=== PATIENT | male | born 1960 | race Caucasian/White ===

== ENCOUNTER 2021-10-13 09:50 | Outpatient (CLI) | payer OTHER, SELFPAY ==
--- NOTE | ~2021-10-13 | US_ITS ---
EXAMINATION: US abdomen complete DATE: 10/13/2021 10:31 INDICATION: Abnormal liver function tests TECHNIQUE: Multiple grayscale and Doppler ultrasound images of the abdomen were obtained. COMPARISON: CT, 09/07/2018 FINDINGS: Bowel gas obscures visualization of the pancreas. The visualized portions of the pancreas a re unremarkable. The liver is normal with normal echogenicity and echotexture. No surface nodularity. Normal hepatopetal flow in the main portal vein. The gallbladder is normal with no abnormal wall thi ckening, pericholecystic fluid or stones. The normal common bile duct measures 5 mm. There was no son ographic Becerra sign. The visualized portions of the aorta and inferior vena cava are normal. The right kidney measures 11.7 x 5.5 x 6.4 cm. The left kidney measures 10.7 x 5.8 x 5.8 cm. The kidn eys demonstrate normal parenchymal echogenicity. There is no hydronephrosis. The spleen is normal in appearance and measures 11.5 cm. IMPRESSION: 1. No sonographic correlate for the patient's symptoms. Reviewed, dictated and finalized at location A. ICAL EDUCATION PROFESSOR
== END 2021-10-13 09:51 | disposition home or self-care (01) ==
LOC: ANHIMG 09:54
PROVIDERS: PCP Internal Medicine; Visit Provider Internal Medicine
DX: R79.89 Other specified abnormal findings of blood chemistry (principal)
CPT/HCPCS: 76700

== ENCOUNTER 2023-08-11 14:29 | Observation (INO) | payer OTHER, SELFPAY ==
[2023-08-11] VITALS (20 sets, daily range): BP systolic 130–146; BP diastolic 77–91; PULSE 93–118; RESP 14–31; TEMP 36.7–37.3; O2SAT 95–100; BMI 24.9
--- NOTE | ~2023-08-11 | CT_ITS ---
EXAMINATION: CT abdomen pelvis w con DATE: 08/11/2023 15:45 INDICATION: Generalized abdominal pain. Nausea. TECHNIQUE: Computed tomography (CT) of the abdomen and pelvis was performed with 100 mL Omnipaque 350 intravenous contrast. Automated exposure control and iterative reconstruction technique were employe d. The dose-length product was 505.50 mGy-cm. COMPARISON: CT abdomen and pelvis 09/07/2018 FINDINGS: The visualized portions of the lung bases are clear without pneumonia or pleural effusion. The heart size is normal. No pericardial effusion. A small sliding hiatal hernia. There are surgical changes of the stomach. The liver and spleen are normal. The gallbladder is distended and contains ga llstones. Gallbladder wall thickening is noted. The pancreas, adrenal glands, and left kidney are nor mal. There is a 4 mm cyst in right kidney. The prostate is mildly enlarged. There are no dilated loop s of bowel. The appendix is normal. There are no pathologically enlarged lymph nodes. There is a smal l volume of ascites. There is mild thoracic and lumbar spondylosis. There is mild chronic anterior we dging of lower thoracic vertebral bodies. IMPRESSION: 1. Acute cholecystitis. 2. Small volume of ascites. Reviewed, dictated and finalized at location E.
--- NOTE | 2023-08-11 14:42 | ED.ABDPAIN ---
HPI - Abdominal Pain General Chief Complaint: Abdominal Pain <Cassidy Berger MD - Last Filed: 08/12/23 08:00> Stated Complaint: abd apin <Cassidy Berger MD - Last Filed: 08/12/23 08:00> Time Seen by Provider: 08/11/23 14:35 <Cassidy Berger MD - Last Filed: 08/12/23 08:00> Source: patient, EMS, RN notes reviewed and old records reviewed <Cassidy Berger MD - Last Filed: 08/12/23 08:00> Mode of arrival: EMS <Cassidy Berger MD - Last Filed: 08/12/23 08:00> Limitations: no limitations <Cassidy Berger MD - Last Filed: 08/12/23 08:00> History of Present Illness HPI narrative: This is a 63 year old male who presents for evaluation of mid abdominal pain. He states he developed pain at 4 am this morning. His pain has been constant and nonradiating. His pain became worse just prior to arrival so he called EMS. He has associated nausea and dry heaves. He denies similar syptoms in the past. Denies fever or chills. <Cassidy Berger MD - Last Filed: 08/12/23 08:00> Related Data Home Medications: Home Medications Medication Instructions Recorded Confirmed cholecalciferol (vitamin D3) 50 2,000 unit PO DAILY 09/23/19 08/11/23 mcg (2,000 unit) capsule (Vitamin D3) trazodone 150 mg tablet 150 mg PO HS 09/23/19 08/11/23 gabapentin 300 mg capsule 300 mg PO BID 09/22/21 08/11/23 olanzapine 10 mg tablet 10 mg PO HS 09/22/21 08/11/23 vilazodone 40 mg tablet (Viibryd) 40 mg PO HS 09/22/21 08/11/23 <Cassidy Berger MD - Last Filed: 08/12/23 08:00> Allergies/Adverse Reactions: Allergies Allergy/AdvReac Type Severity Reaction Status Date / Time No Known Allergies Allergy Verified 08/11/23 14:37 <Cassidy Berger MD - Last Filed: 08/12/23 08:00> Review of Systems Constitutional: Constitutional: Denies weakness <Cassidy Berger MD - Last Filed: 08/12/23 08:00> Cardiovascular: Cardiovascular: Denies syncope, Denies rapid heart rate, Denies irregular heart rhythm, Denies leg edema and Denies dyspnea <Cassidy Berger MD - Last Filed: 08/12/23 08:00> Respiratory: Respiratory: Denies chest congestion, Denies hemoptysis, Denies excessive phlegm production and Denies dyspnea <Cassidy Berger MD - Last Filed: 08/12/23 08:00> Gastrointestinal: Gastrointestinal: Reports abdominal pain, Denies hematochezia, Denies diarrhea, Reports nausea and Reports vomiting <Cassidy Berger MD - Last Filed: 08/12/23 08:00> Genitourinary: Genitourinary: Denies hematuria, Denies dysuria, Denies penile discharge and Denies testicular pain <Cassidy Berger MD - Last Filed: 08/12/23 08:00> Musculoskeletal: Musculoskeletal: Denies joint swelling, Denies loss of height and Denies muscle weakness <Cassidy Berger MD - Last Filed: 08/12/23 08:00> Neurologic: Denies syncope, Denies focal weakness and Denies weakness <Cassidy Berger MD - Last Filed: 08/12/23 08:00> [facility] Past Medical History Medical History: Medical History (Updated 08/11/23 @ 17:02 by Cassidy Berger MD) Anxiety Colon cancer screening Depression GERD (gastroesophageal reflux disease) <Cassidy Berger MD - Last Filed: 08/12/23 08:00> Surgical History Surgical History: Surgical History (Updated 08/11/23 @ 19:14 by Jesus Luz DO) History of Tong-en-Y gastric bypass <Cassidy Berger MD - Last Filed: 08/12/23 08:00> Family History Family History: Family History Mother Family history of obesity Depression Family history of cardiovascular disease Father Family history of alcoholism Family history of pancreatic cancer, Onset Age: 60 Grandparent Family history of cardiovascular disease Family history of arthritis <Cassidy Berger MD - Last Filed: 08/12/23 08:00> Social History Social History: Social History (Updated 04/28/23 @ 09:11 by Smita Mccrary MA) Smoking status: Nev
[2023-08-11] MEDS: HYDROmorphone HCL INJ (*CRX) 1 MG/ML SYR IV PUSH ×2 (14:45→16:05)
[2023-08-11] MEDS: ONDANSETRON INJ 4 MG/2 ML VIAL IV PUSH (14:45)
[2023-08-11] MEDS: SODIUM CHLORIDE 0.9% IV 1,000 ML 999 ML IV CONT ×2 (14:45→15:51)
[2023-08-11 14:59] LABS: Basophils Percent Auto 0.2 % (0.2-1.2); Eosinophils Percent Auto 0.1 % (0-4.4); Hematocrit 41.3 % (42.0-52.0); Hemoglobin 13.8 g/dL (14.0-18.0); Immature Granulocyte Absolute 0.07 K/mm3 (0.00-0.031); Immature Granulocyte Percent A 0.6 % (0-0.5); Lymphocytes Absolute Auto 1.29 K/mm3 (0.9-3.2); Lymphocytes Percent Auto 10.3 % (18.3-44.2); Mean Corpuscular HGB Conc 33.4 g/dl (32-36); Mean Corpuscular Hemoglobin 31.4 pg (26-34); Mean Corpuscular Volume 94.1 fl (80-100); Mean Platelet Volume 9.8 fl (7.4-10.4); Monocytes Absolute Auto 0.8 K/mm3 (0.1-0.6); Monocytes Percent Auto 6.6 % (2.6-8.5); Neutrophils Absolute Auto 10.3 K/mm3 (1.3-6.7); Neutrophils Percent Auto 82.2 % (45.5-73.1); Platelet Count Result 233 k/mm3 (150-375); Red Blood Count 4.39 M/mm3 (4.6-6.20); White Blood Count 12.5 K/mm3 (4.5-10.0)
[2023-08-11 15:25] LABS: Lactic Acid Reflex 3.7 mmol/L (0.7-2.0)
[2023-08-11 15:36] LABS: Alanine Aminotransferase 57 U/L (6-50); Albumin Level 4.6 g/dL (3.5-5.1); Alkaline Phosphatase 94 U/L (38-126); Anion Gap 14 mmol/L (8-16); Aspartate Amino Transferase 55 U/L (17-59); Bilirubin,Total 0.8 mg/dL (0.2-1.3); Blood Urea Nitrogen 6 mg/dL (9-20); Calcium 9.7 mg/dL (8.4-10.2); Carbon Dioxide 21 mmol/L (22-30); Chloride 100 mmol/L (98-107); Estimated CRCL calculation 93 ml/min; Estimated Glomerular Filt Rate > 60; Glucose 197 mg/dL (65-110); Lipase 51 U/L (23-300); Potassium 3.4 mmol/L (3.4-5.0); Sodium 135 mmol/L (137-145)
[2023-08-11 17:13] LABS: Appearance Urine Clear (Clear); Bilirubin Urine Negative (Negative); Blood Urine Negative (Negative); Color Urine Yellow (Yellow); Glucose Urine UA 2+ mg/dL (Negative); Ketones Urine Negative (Negative); Leukocyte Esterase Ur Negative LEU/UL (Negative); Nitrate Urine Negative (Negative); Protein Urine Negative (Negative); Urobilinogen Urine 0.2 mg/dL (<2.0); pH Urine 6.5 (5.0-9.0)
[2023-08-11 17:20] LABS: Add Urine Microscopic? NO; Specific Grav Ur 1.042 (1.001-1.035)
[2023-08-11] MEDS: PIPERACILLN/TAZ 3.375GM/NS50ML 3.375 GM/50 ML BAG IVPB (17:28)
[2023-08-11 18:12] LABS: Reflex Lactic Acid Yes or No Add Lactic
[2023-08-11] MEDS: HYDROmorphone HCL INJ (*CRX) 1 MG/ML SYR 0.5 MG IV PUSH ×2 (18:24→20:27)
--- NOTE | 2023-08-11 18:45 | ADMGEN ---
This patient, Rafael Oliveira, was admitted to 3 [facility] Surg Room 311-01 @ 3535. Patient/family oriented to hospital policies and general routines including ID bracelet, bed and alarms, visiting hours, pain management, procedures, bathroom and other care routines, personal items, smoking policy, room service/diet, and visiting hours. Information on how to activate the Rapid Response Team has been discussed. Patient/Family are encouraged to report perceived risks to care and to ask questions if they do not understand what they are told or what they should do.
--- NOTE | 2023-08-11 19:11 | PM.IMHP ---
H&P: HPI History of Present Illness Date/Time: 08/11/23 19:11 Chief Complaint: Generalized abdominal pain Narrative: This is a 63-year-old man who presented to the emergency department today with acute onset of generalized abdominal pain that started around 4:00 a.m. this morning. He does not recall anything specific that he ate for dinner last night but said he probably did eat a lot of junk food. He has never had symptoms like this before. He states that he did feel a popping sensation when the pain suddenly worsened. He denies any fevers or chills. He denies any change in bowel habits leading up to this. Review of Systems Review of Systems: All systems reviewed & are unremarkable except as noted in HPI and below Constitutional: Constitutional: Reports as per HPI Eyes: Eyes: Denies change in vision ENT: Denies hearing loss, Denies neck pain and Denies sore throat Cardiovascular: Cardiovascular: Denies chest pain and Denies dyspnea Respiratory: Respiratory: Denies cough, Denies dyspnea and Denies wheezing Gastrointestinal: Gastrointestinal: Reports as per HPI Genitourinary: Genitourinary: Denies hematuria and Denies dysuria Musculoskeletal: Musculoskeletal: Denies arthralgias, Denies joint swelling and Denies neck pain Allergic/Immunologic: Allergic/Immunologic: Denies wheezing PMFSH Past Medical History Medical History (Updated 08/11/23 @ 17:02 by Cassidy Breger MD) Anxiety Colon cancer screening Depression GERD (gastroesophageal reflux disease) Surgical History Surgical History (Updated 08/11/23 @ 19:14 by Jesus Luz DO) History of Tong-en-Y gastric bypass Family History Family History Mother Family history of obesity Depression Family history of cardiovascular disease Father Family history of alcoholism Family history of pancreatic cancer, Onset Age: 60 Grandparent Family history of cardiovascular disease Family history of arthritis Social History Social History (Updated 04/28/23 @ 09:11 by Smita Mccrary MA) Smoking status: Never smoker Second hand tobacco smoke exposure: No Alcohol intake: former Substance use: never Lack of Transportation: No Lack of Food: Never True Current Housing: I Have Housing Concerned About Future Housing: No Difficulty Paying Gas/Electric Bills: No Difficulty Paying for Meds: No Currently Unemployed: No Education: Master's Degree or Higher Difficulty w/ Childcare or Family Care: No Gender identity (if verbalized by the patient): Male Meds Home Medications and Allergies Home Medications Medication Instructions Recorded Confirmed Type cholecalciferol (vitamin D3) 50 2,000 unit PO DAILY 09/23/19 04/28/23 History mcg (2,000 unit) capsule (Vitamin D3) hydroxyzine pamoate 50 mg BID 09/23/19 04/28/23 History trazodone 150 mg tablet 150 mg PO HS 09/23/19 04/28/23 History gabapentin 300 mg capsule 300 mg PO BID 09/22/21 04/28/23 History olanzapine 10 mg tablet 10 mg PO DAILY 09/22/21 04/28/23 History vilazodone 40 mg tablet (Viibryd) 40 mg PO DAILY 09/22/21 04/28/23 History ferrous sulfate 325 mg (65 mg 325 mg PO DAILY #90 tabs 04/28/23 04/28/23 Rx iron) tablet Allergies Allergy/AdvReac Type Severity Reaction Status Date / Time No Known Allergies Allergy Verified 08/11/23 14:37 Vital Signs Vital Signs - 24 hr 08/11/23 14:31 08/11/23 14:45 08/11/23 14:46 Temperature 36.8 C Pulse Rate 118 H 108 H 108 H Respiratory Rate 23 H 28 H 31 H Blood Pressure 141/90 H 140/86 Pulse Oximetry 100 100 100 Oxygen Delivery Room Air 08/11/23 15:33 08/11/23 17:31 08/11/23 16:06 Temperature Pulse Rate 109 H 108 H Respiratory Rate 24 H 19 Blood Pressure 146/91 H Pulse Oximetry 98 Oxygen Delivery 08/11/23 16:52 08/11/23 17:00 08/11/23 17:15 Temperature Pulse Rate 101 H 101 H 115 H Respiratory Ra
[2023-08-11] MEDS: LACTATED RINGERS 1,000 ML 150 ML IV CONT (20:26)
[2023-08-12] VITALS (14 sets, daily range): BP systolic 116–143; BP diastolic 70–85; PULSE 68–112; RESP 12–24; TEMP 36.6–37.2; O2SAT 95–99
[2023-08-12] MEDS: PIPERACILLN/TAZ 3.375GM/NS50ML 3.375 GM/50 ML BAG IVPB ×4 (00:11→16:47)
[2023-08-12] MEDS: HYDROmorphone HCL INJ (*CRX) 1 MG/ML SYR 0.5 MG IV PUSH (02:48)
[2023-08-12] MEDS: LACTATED RINGERS 1,000 ML 150 ML IV CONT (02:50)
[2023-08-12 07:27] LABS: Hematocrit 38.4 % (42.0-52.0); Hemoglobin 12.8 g/dL (14.0-18.0); Mean Corpuscular HGB Conc 33.3 g/dl (32-36); Mean Corpuscular Hemoglobin 31.6 pg (26-34); Mean Corpuscular Volume 94.8 fl (80-100); Mean Platelet Volume 9.9 fl (7.4-10.4); Platelet Count Result 182 k/mm3 (150-375); Red Blood Count 4.05 M/mm3 (4.6-6.20); Red Cell Distribution Width 14.2 % (11.5-14.5); White Blood Count 10.9 K/mm3 (4.5-10.0)
[2023-08-12 07:39] LABS: Alanine Aminotransferase 68 U/L (6-50); Albumin Level 3.7 g/dL (3.5-5.1); Alkaline Phosphatase 76 U/L (38-126); Anion Gap 5 mmol/L (8-16); Aspartate Amino Transferase 95 U/L (17-59); Bilirubin,Total 1.1 mg/dL (0.2-1.3); Blood Urea Nitrogen 8 mg/dL (9-20); Calcium 8.7 mg/dL (8.4-10.2); Carbon Dioxide 28 mmol/L (22-30); Chloride 100 mmol/L (98-107); Estimated CRCL calculation 93 ml/min; Estimated Glomerular Filt Rate > 60; Glucose 117 mg/dL (65-110); Lipase 27 U/L (23-300); Potassium 4.2 mmol/L (3.4-5.0); Sodium 133 mmol/L (137-145)
--- NOTE | 2023-08-12 07:56 | WPDANESEPPF ---
Anes - Initial Pre Proc Eval Procedure: Operation Date: 08/12/23 08:00 Proposed Procedures p Laparoscopic Cholecystectomy - Jesus Luz DO Date/Time: 08/12/23 07:56 Surgeon: Annette Dumont DO Pre Op Diagnosis: Acute Cholecystitis Patient Data Age: 63 Gender: M Height: 1.75 m Weight: 76.6 kg Last Vital Signs Temp 37.2 C 08/12/23 05:34 Pulse 83 08/12/23 05:34 Resp 12 08/12/23 05:34 BP 116/78 08/12/23 05:34 Pulse Ox 98 08/12/23 05:34 O2 Del Method Room Air 08/12/23 07:37 Allergies Allergy/AdvReac Type Severity Reaction Status Date / Time No Known Allergies Allergy Verified 08/11/23 14:37 Home Medications Medication Instructions Recorded Confirmed Type cholecalciferol (vitamin D3) 50 2,000 unit PO DAILY 09/23/19 08/11/23 History mcg (2,000 unit) capsule (Vitamin D3) trazodone 150 mg tablet 150 mg PO HS 09/23/19 08/11/23 History gabapentin 300 mg capsule 300 mg PO BID 09/22/21 08/11/23 History olanzapine 10 mg tablet 10 mg PO HS 09/22/21 08/11/23 History vilazodone 40 mg tablet (Viibryd) 40 mg PO HS 09/22/21 08/11/23 History ferrous sulfate 325 mg (65 mg 325 mg PO DAILY #90 tabs 04/28/23 08/11/23 Rx iron) tablet Laboratory Tests 08/11/23 08/11/23 08/11/23 14:49 15:10 16:46 WBC 12.5 H K/mm3 (4.5-10.0) RBC 4.39 L M/mm3 (4.6-6.20) Hgb 13.8 L g/dL (14.0-18.0) Hct 41.3 L % (42.0-52.0) MCV 94.1 fl (80-100) MCH 31.4 pg (26-34) MCHC 33.4 g/dl (32-36) RDW 14.0 % (11.5-14.5) Plt Count 233 k/mm3 (150-375) MPV 9.8 fl (7.4-10.4) Immature Gran % (Auto) 0.6 H % (0-0.5) Neut % (Auto) 82.2 H % (45.5-73.1) Lymph % (Auto) 10.3 L % (18.3-44.2) [place] % (Auto) 6.6 % (2.6-8.5) Eos % (Auto) 0.1 % (0-4.4) Baso % (Auto) 0.2 % (0.2-1.2) Lymph # (Auto) 1.29 K/mm3 (0.9-3.2) [place] # (Auto) 0.8 H K/mm3 (0.1-0.6) Eos # (Auto) 0.0 K/mm3 (0-0.3) Baso # (Auto) 0.0 K/mm3 (0.0-0.1) Abs Immat Gran (auto) 0.07 H K/mm3 (0.00-0.031) Absolute Neuts (auto) 10.3 H K/mm3 (1.3-6.7) Absolute Nucleated RBC 0.0 K/mm3 (0.0-0.012) Nucleated RBC % 0.0 % (0.0-0.2) Sodium 135 L mmol/L (137-145) Potassium 3.4 mmol/L (3.4-5.0) Chloride 100 mmol/L (98-107) Carbon Dioxide 21 L mmol/L (22-30) Anion Gap 14 mmol/L (8-16) BUN 6 L mg/dL (9-20) Creatinine 0.70 mg/dL (0.7-1.3) Estim Creat Clear Calc 93 ml/min Estimated GFR > 60 (59 - ) Glucose 197 H mg/dL (65-110) Lactic Acid 3.7 H mmol/L (0.7-2.0) Calcium 9.7 mg/dL (8.4-10.2) Total Bilirubin 0.8 mg/dL (0.2-1.3) AST 55 U/L (17-59) ALT 57 H U/L (6-50) Alkaline Phosphatase 94 U/L (38-126) Total Protein 8.0 g/dL (6.3-8.2) Albumin 4.6 g/dL (3.5-5.1) Lipase 51 U/L (23-300) Urine Color Yellow (Yellow) Urine Appearance Clear (Clear) Urine pH 6.5 (5.0-9.0) Ur Specific [place] 1.042 H (1.001-1.035) Urine Protein Negative mg/dL (Negative) Urine Glucose (UA) 2+ H mg/dL (Negative) Urine Ketones Negative mg/dL (Negative) Ur Blood (Man) Negative (Negative) Urine Nitrate Negative (Negative) Urine Bilirubin Negative (Negative) Urine Urobilinogen 0.2 mg/dL (<2.0) Leukocyte Esterase Rfl Negative JESSICA/UL (Negative) 08/11/23 08/12/23 19:09 06:45 WBC 10.9 H K/mm3 (4.5-10.0) RBC 4.05 L M/mm3 (4.6-6.20) Hgb 12.8 L g/dL (14.0-18.0) Hct 38.4 L % (42.0-52.0) MCV 94.8 fl (80-100) MCH
--- NOTE | 2023-08-12 08:02 | WPDHPUPDATE1 ---
History and Physical Update Update Date/Time: 08/12/23 08:02 History and Physical has been reviewed, including an updated exam of the patient. There are NO changes in the patient's condition. Risks, benefits, and alternatives have been discussed and questions answered. Patient agrees to proceed with procedure.
[2023-08-12] MEDS: BUPIVACAINE/EPINEPHRINE 0.5% 50 ML VIAL 30 ML INFILTRATE (08:29)
[2023-08-12] MEDS: LACTATED RINGERS 1,000 ML 30 ML IV CONT ×2 (08:40→09:36)
--- NOTE | 2023-08-12 09:08 | SUR.OPER ---
VOIDED PRIOR TO OR IN PREOP 125ML JOHNSON U/A
--- NOTE | 2023-08-12 09:34 | W.PM.PROC2 ---
Procedure Note - Detailed Date of Procedure 08/12/23 Pre-op Diagnosis Acute calculous cholecystitis Post-op Diagnosis Same Procedure Performed Laparoscopic Cholecystectomy Surgeon Jesus Luz, DO Anesthesia General and Local (0.5% bupivacaine) Indications This is a 63-year-old man who presented to the emergency department yesterday with generalized abdominal pain that started earlier in the morning. He had never had symptoms like this in the past. His symptoms becoming more severe. CT in the emergency department showed evidence of acute calculous cholecystitis. There was also some ascites around the liver and gallbladder. Patient was admitted and placed on broad-spectrum IV antibiotics. Discussions were made with the patient about treatment options and decision was made to proceed with laparoscopic cholecystectomy, possible open. Findings Laparoscopic cholecystectomy was performed. The gallbladder appeared to be acutely inflamed with distension and hyperemia. There appeared to be some blood tinged ascites around the liver and right pericolic gutter. Was even some ascites down in the pelvis. About 600 mL ascites was aspirated using the suction farmer tree fruit and nut crops. No signs of active bleeding noted. Most of the inflammatory changes appeared to be near the gallbladder. The bowel was carefully inspected as well as the appendix and no other significant abnormalities were noted. The gallbladder contained multiple tiny gallstones. The cystic duct appeared normal in size. The gallbladder was removed and sent to the lab for pathology. Description of Procedure Procedure as well as risks, benefits, and alternatives were discussed with patient. Written consent was obtained and placed in chart prior to procedure. The patient was brought back to surgical suite. Patient was placed in supine position on operating table. Time-out was done to confirm patient and procedure. Patient was then intubated by the anesthesia department. Abdomen was prepped and draped in sterile fashion using chlorhexidine prep. 0.5% bupivacaine with epinephrine was infiltrated at each site of incision. A 5 millimeter incision was made near the umbilicus, and a 5 millimeter Optiview trocar was advanced through the abdominal layers under direct visualization. Once inside the abdominal cavity, carbon dioxide was insufflated to create a pneumoperitoneum. The camera was inserted and the abdomen was inspected. No immediate abnormalities were identified. The patient was placed in reverse Trendelenburg position and rotated slightly to the left. An 11 millimeter incision was made in the subxiphoid region, and an 11 millimeter trocar was inserted under direct visualization. Two 5 millimeter incisions were made in the right upper quadrant, and two 5 millimeter trocars were inserted under direct visualization. The gallbladder was identified and grasped at the fundus and retracted superiorly. It was then grasped at the infundibulum retracted laterally. Careful dissection around the neck of the gallbladder was performed using blunt dissection with a [place] grasper and hook electrocautery. The cystic duct was identified, and a window was created behind it. The cystic artery was also identified and a window was created behind it. The critical view of safety was identified, visualizing the cystic duct running directly into the neck of the gallbladder, and the cystic artery running directly into the wall of the gallbladder. A 5 millimeter clip steam fitter supervisor maintenance was then used to place 2 clips proximally and 1 clip distally on both the cystic duct and cystic artery. They were then both transected using endoscopic scissors. Once safely away from the neema hepatitis, the gallbladder was dissected free from the liver bed using hook electrocautery. Hemostasis was achieved along the way. The gallbladder was removed completely and then removed through the subxiphoid port. The liver bed was then inspected. Hemostasis
[2023-08-12] MEDS: HYDROmorphone HCL INJ (*CRX) 1 MG/ML SYR IV PUSH (12:37)
[2023-08-12] MEDS: ACETAMINOPHEN 500 MG TABLET 1000 MG PO ×2 (12:52→19:01)
[2023-08-12] MEDS: GABAPENTIN 300 MG CAPSULE PO (16:44)
[2023-08-12] MEDS: oxyCODONE HCL (*CRX) 5 MG TAB IR PO ×2 (16:44→20:54)
[2023-08-12] MEDS: OLANZapine 5 MG TABLET 10 MG PO (20:46)
[2023-08-12] MEDS: traZODone HCL 50 MG TABLET 150 MG PO (20:47)
[2023-08-13 00:18] VITALS: BP 105/88; PULSE 99; RESP 12; TEMP 36.7; O2SAT 95
[2023-08-13] MEDS: oxyCODONE HCL (*CRX) 5 MG TAB IR PO ×3 (01:52→10:53)
[2023-08-13 04:18] VITALS: BP 110/65; PULSE 87; RESP 12; TEMP 36.8; O2SAT 98
[2023-08-13 06:32] LABS: Hematocrit 32.3 % (42.0-52.0); Hemoglobin 10.7 g/dL (14.0-18.0); Mean Corpuscular HGB Conc 33.1 g/dl (32-36); Mean Corpuscular Hemoglobin 31.4 pg (26-34); Mean Corpuscular Volume 94.7 fl (80-100); Mean Platelet Volume 9.9 fl (7.4-10.4); Platelet Count Result 149 k/mm3 (150-375); Red Blood Count 3.41 M/mm3 (4.6-6.20); Red Cell Distribution Width 14.1 % (11.5-14.5); White Blood Count 9.5 K/mm3 (4.5-10.0)
[2023-08-13] MEDS: PIPERACILLN/TAZ 3.375GM/NS50ML 3.375 GM/50 ML BAG IVPB ×2 (06:33)
[2023-08-13 06:44] LABS: Alanine Aminotransferase 65 U/L (6-50); Albumin Level 3.3 g/dL (3.5-5.1); Alkaline Phosphatase 69 U/L (38-126); Anion Gap 1 mmol/L (8-16); Aspartate Amino Transferase 64 U/L (17-59); Bilirubin,Total 0.8 mg/dL (0.2-1.3); Blood Urea Nitrogen 8 mg/dL (9-20); Calcium 8.7 mg/dL (8.4-10.2); Carbon Dioxide 33 mmol/L (22-30); Chloride 101 mmol/L (98-107); Estimated CRCL calculation 93 ml/min; Estimated Glomerular Filt Rate > 60; Glucose 94 mg/dL (65-110); Potassium 3.7 mmol/L (3.4-5.0); Sodium 135 mmol/L (137-145)
[2023-08-13 08:18] VITALS: BP 116/77; PULSE 82; RESP 20; TEMP 36.6; O2SAT 98
[2023-08-13] MEDS: GABAPENTIN 300 MG CAPSULE PO (08:20)
[2023-08-13 12:18] VITALS: BP 114/75; PULSE 84; RESP 20; TEMP 36.6; O2SAT 98
--- NOTE | 2023-08-13 13:33 | PM.DS ---
DS: Admitting Diagnosis Discharge Date 08/13/2023 Admitting Diagnosis Acute calculous cholecystitis DS: Discharge Diagnosis Discharge Diagnosis (1) Acute calculous cholecystitis: Code(s): K80.00 - Calculus of gallbladder with acute cholecystitis without obstruction Status: Acute (2) Major depressive disorder, recurrent, unspecified: Qualifiers: Active/Remission status: currently active Major depression episode severity: unspecified Qualified Code(s): F33.9 - Major depressive disorder, recurrent, unspecified Code(s): F33.9 - Major depressive disorder, recurrent, unspecified Status: Acute (3) Hx of gastric bypass: Code(s): Z98.84 - Bariatric surgery status Status: Acute DS: Summary Hospital Course Reason for hospitalization: Acute calculous cholecystitis Hospital Course: This is a 63-year-old man who presented to the emergency department on 08/11/2023 with acute onset of generalized abdominal pain that started earlier that morning. He had never experienced anything like this in the past. In the emergency department he was noted to have an elevated white blood count and CT showed evidence of acute cholecystitis. He was placed on broad-spectrum IV antibiotics and was admitted for further treatment. He underwent laparoscopic cholecystectomy on 08/12/2023. His diet and activity were gradually advanced postoperatively. He remained hemodynamically stable and was tolerating a low-fat diet. He was discharged 08/13/2023. Status at Discharge Functional status at discharge: independent ambulation Overall status at discharge: patient is progressing back to baseline Time Spent with Patient Time attestation: Total time spent providing and/or coordinating discharge services: Time spent: Less than 30 minutes Exam Resp: Effort & Inspection: normal respiratory effort Auscultation: clear to auscultation bilaterally Cardio: Rate: regular rate Rhythm: regular rhythm Heart sounds: S1 normal heart sound present and S2 normal heart sound present GI: Inspection: non-distended and incision (Intact with glue) GI Palp: Yes Soft to palpation, Yes Tenderness to palpation present (GI) (Incisional) and No Guarding due to palpation present (GI) DS: Data Data Completed and Pending Pending studies at discharge: Pending at discharge 08/12/23 08:51 Surgical [PTH] Routine Labs on day of discharge: Labs from last 24 hours 08/13/23 05:52 WBC 9.5 RBC 3.41 L Hgb 10.7 L Hct 32.3 L MCV 94.7 MCH 31.4 MCHC 33.1 RDW 14.1 Plt Count 149 L MPV 9.9 Sodium 135 L Potassium 3.7 Chloride 101 Carbon Dioxide 33 H Anion Gap 1 L BUN 8 L Creatinine 0.70 Estim Creat Clear Calc 93 Estimated GFR > 60 Glucose 94 Calcium 8.7 Total Bilirubin 0.8 AST 64 H ALT 65 H Alkaline Phosphatase 69 Total Protein 6.0 L Albumin 3.3 L Preliminary micro results at discharge 08/11/23 16:46 Blood Culture - Preliminary Blood 08/11/23 16:25 Blood Culture - Preliminary Blood Imaging Radiologist's impression: ITS Impressions Abdomen/Pelvis CT 08/11/23 15:48 IMPRESSION: 1. Acute cholecystitis. 2. Small volume of ascites. Discharge Plan Discharge Attending physician on discharge: Jesus Cooper Discharging Clinician: Jesus Cooper Patient Disposition: Home, Self-Care Activity: other - see discharge instructions Diet: other - see discharge instructions Wound Care Instructions: other - see discharge instructions Discharge Instructions: DISCHARGE INSTRUCTION SHEET FOR HERNIA, GALLBLADDER AND APPENDIX SURGERIES DR. COOPER PATIENT TO TAKE HOME 1. May shower, no soaking in bath x 2weeks. 2. Call office for: Wound increasingly painful or bleeding Vomiting Fever of greater than 101 degrees 3. If no bowel movement for three days, take 1 oz. (30 ml) Milk of Magnesia or MiraLax 17g 1 to 2 times daily. 4. No heavy lif
== END 2023-08-13 14:15 | disposition home or self-care (01) ==
LOC: ANHED 17:20 → ANH3MEDSUR 18:10
PROVIDERS: General Practice; Admitting Provider Surgery; Emergency Provider Emergency Medicine; PCP Family Medicine; Visit Provider Surgery
PROC: 0FT44ZZ Resection of Gallbladder, Percutaneous Endoscopic Approach (ICD-10-PCS; CPT 47562; principal; 2023-08-12 08:00)
DX: K80.10 Calculus of gallbladder with chronic cholecystitis without obstruction (principal); F41.9 Anxiety disorder, unspecified; F33.9 Major depressive disorder, recurrent, unspecified; K21.9 Gastro-esophageal reflux disease without esophagitis; Z98.84 Bariatric surgery status; Z79.899 Other long term (current) drug therapy
CPT/HCPCS: 47562; 36415; 74177; 80053; 81003; 83605; 83690; 85025; 85027; 87040; 88304; 96361; 96365; 96374; 96375; 96376; 99285; A9270; G0378; G0379; J1100; J1170; J2250; J2371; J2405; J2543; J2704; J3010; J7030; J7120; Q9967

== ENCOUNTER 2024-12-30 03:31 | Day surgery (SDC) | payer OTHER, SELFPAY ==
[2024-12-18 12:04] VITALS: BMI 24.4
--- OUTSIDE RECORDS SUMMARY | 2024-12-30 03:34 | XMS_ITS | Clinical Summary ---
Author Organization [facility] Address [address] [place] [address] Care Team Providers Care Fuse Maker Name Role Phone Unavailable Primary Care Provider Unavailabl e Source Comments [facility],non-owned Affiliates and Associated Physician Practices is amultiple site organization consisting of ambulatory clinics and hospital sitesin [place], [place], [place] and [place]. This disclosure is being madepursuant to the Care Everywhere program and may not contain all information available regarding this patient. Last updated 18.[facility] Allergies No known active allergies Social History Tobacco Use Types Packs/Day Years Used Date Smoking Tobacco: Never Assessed Sex and Gender Information Value Date Recorded Sex Assigned at Not on file Gender Identity Not on file Sexual Orientation Not on file Plan of Treatment Health Maintenance Due Date Last Done Comments COLOGUARD (AGES 45-75) - COL ON CA SCREENING 1960 COLON MONITORING 1960 COLONOSCOPY - COLON CA SCREENING 1960 CT COLONOGRAPHY - COLON CA SCREENING 1960 Colorectal Cancer Screening 1960 FIT - COLON CA SCREENING 1960 FLEX SIG - COLON CA SCREENING 1960 LIPID TESTING 1960 HIV SCREENING 1975 HEPATITIS C SCREENING 03/28/1978 DTAP/TDAP/TD VACCINES (1 - Tdap) 1979 PNEUMOCOCCAL VACCINE 50+ (1 of 1 - PCV) 2010 ZOSTER VACCINE (1 of 2) 2010 COVID-19 VACCINE ( - 2023-2 5 season) 2024 INFLUENZA VACCINE (#1) 2024 DEPRESSION SCREENING 11/06/2024 Respiratory Syncytial Virus (RSV) Vaccine Pt: or over 60 yrs (1 - 1-dose 75+ series) 2035 HEPATITIS B VACCINE Aged Out No longe r eligible based on patient's age to complete this topic HIB VACCINE Aged Out No longer eligi ble based on patient's age to complete this topic HPV VACCINE Aged Out No longer eligi ble based on patient's age to complete this topic MENINGOCOCCAL (Group B) VACCINE Aged Out No longer eligible based on patient's age to complete this topic MENINGOCOCCAL VACCINE Aged Out No hafsa keiry eligible based on patient's age to complete this topic PNEUMOCOCCAL VACCINE Aged Out No long er eligible based on patient's age to complete this topic
--- OUTSIDE RECORDS SUMMARY | 2024-12-30 03:34 | XMS_ITS | Patient Health Summary ---
Author Organization [facility] Address [address] [address] Care Team Providers Care Solderer Furnace Name Role Phone Unavailable Primary Care Provider Unavailabl e Note from [facility],non-owned Affiliates and Associated Physician Practices is amultiple site organization consisting of ambulatory clinics and hospital sitesin [place], [place], [place] and [place]. This disclosure is being madepursuant to the Care Everywhere program and may not contain all information available regarding this patient. Last updated 18.[facility] Allergies No known active allergies Social History Tobacco Use Types Packs/Day Years Used Date Smoking Tobacco: Never Assessed Sex and Gender Information Value Date Recorded Sex Assigned at Not on file Gender Identity Not on file Sexual Orientation Not on file Procedures * SKIN TEST PPD - POINT OF CARE(Performed 06/08/2019) Performed for PPD screening test Results * SKIN TEST PPD - POINT OF CARE (06/08/2019) PPD Other MISCELLANEOUS SAMPLE S / Unknown 06/08/2019 Marco Antonio Nichols QUALITATIVE RESEARCHER-CLINICAL REVIEW NURSE LAB - POINT OF CA RE ORDERABLES
--- OUTSIDE RECORDS SUMMARY | 2024-12-30 03:34 | XMS_ITS | Referral Summary ---
Author Organization [facility] Address [address] [place] [address] Care Team Providers Care Spool Tender Name Role Phone Unavailable Primary Care Provider Unavailabl e Source Comments [facility],non-owned Affiliates and Associated Physician Practices is amultiple site organization consisting of ambulatory clinics and hospital sitesin [place], [place], [place] and [place]. This disclosure is being madepursuant to the Care Everywhere program and may not contain all information available regarding this patient. Last updated 18.[facility] Allergies No known active allergies Social History Tobacco Use Types Packs/Day Years Used Date Smoking Tobacco: Never Assessed Sex and Gender Information Value Date Recorded Sex Assigned at Not on file Gender Identity Not on file Sexual Orientation Not on file Plan of Treatment Not on file Administered Medications Rafael More Personal/Family Self 1960 ([place]) [address] [place] [id number]
--- OUTSIDE RECORDS SUMMARY | 2024-12-30 03:34 | XMS_ITS | Continuity of Care Document ---
Author Name Noemi Dukes Address [address] [place] [address] Organization Unknown Address [address] [place], [place] [id number] [place] [address] Medications No known medications Problems No known problems
[2024-12-30 10:49] VITALS: BP 124/79; PULSE 97; RESP 18; TEMP 36.1; O2SAT 98
[2024-12-30] MEDS: LACTATED RINGERS 1,000 ML 150 ML IV CONT (11:08)
--- NOTE | 2024-12-30 11:51 | P.PNAN_ITS ---
Anes - Initial Pre Proc Eval Procedure: Operation Date: 12/30/24 12:00 Proposed Procedures p Colonoscopy - Tal Villa MD Date/Time: 12/30/24 11:51 Surgeon: Tal Villa MD Pre Op Diagnosis: hx of colon polyps Patient Data Age: 64 Gender: M Height: 1.75 m Weight: 76.4 kg Last Vital Signs Temp 97 F L 12/30/24 10:49 Pulse 97 12/30/24 10:49 Resp 18 12/30/24 10:49 BP 124/79 12/30/24 10:49 Pulse Ox 98 12/30/24 10:49 O2 Del Method Room Air 12/30/24 10:49 Allergies Allergy/AdvReac Type Severity Reaction Status Date / Time No Known Allergies Allergy Verified 12/30/24 10:48 Home Medications ?Medication ?Instructions ?Recorded ?Confirmed ?Type cholecalciferol (vitamin D3) 50 2,000 unit PO DAILY 09/23/19 12/30/24 History mcg (2,000 unit) capsule (Vitamin D3) ferrous sulfate 325 mg (65 mg 325 mg PO DAILY #90 tabs 04/28/23 12/30/24 Rx iron) tablet hydrocodone 5 mg-acetaminophen 325 1 tablet PO Q6H PRN pain #20 tabs 12/11/24 12/18/24 Rx mg tablet gabapentin 300 mg capsule 300 mg PO DAILY 12/18/24 12/30/24 History Patient hx anesthesia problems: none Family hx anesthesia problems: none Results Review: All pre-operative results and documents have been reviewed as part of the pre- operative evaluation. [facility] Past Medical History Medical History BMI 27.0-27.9,adult Colon cancer screening GERD (gastroesophageal reflux disease) Depression Anxiety Surgical History Surgical History History of laparoscopic cholecystectomy on 08/11/23 [facility] History of Tong-en-Y gastric bypass Family History Family History Mother Family history of obesity Depression Family history of cardiovascular disease Father Family history of alcoholism Family history of pancreatic cancer, Onset Age: 60 Grandparent Family history of cardiovascular disease Family history of arthritis Sibling No problems noted. Social History Social History Smoking status: Never smoker Second hand tobacco smoke exposure: No Alcohol intake: current Alcohol use details: 3 drinks a month Substance use: never Substance use type: does not use Do You Feel Safe in your Home?: Yes Lack of Transportation: No Lack of Food: Never True Current Housing: I Have Housing Concerned About Future Housing: No Difficulty Paying Gas/Electric Bills: No Difficulty Paying for Meds: No Currently Unemployed: No Education: Master's Degree or Higher Difficulty w/ Childcare or Family Care: No Living arrangements: alone Occupation/Education: occupation 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 Hx of anxiety/depression. Informed Consent: The patient's anesthetic plan and its attendant risks and benefits were discussed with the patient/family/POA. Questions were solicited and answers provided to the satisfaction of the patient/family/POA.
--- NOTE | 2024-12-30 12:41 | P.HP_ITS ---
History of Present Illness History of Present Illness Consent: Risks, benefits, and alternatives have been discussed and questions answered. Patient agrees to proceed with procedure. Chief complaint: hx of colon polyps Narrative: Rafael Oliveira is a 64 year old male with colon polyp in 2019 Review of Systems Review of Systems: All systems reviewed & are unremarkable except as noted in HPI and below PMFSH Past Medical History Medical History BMI 27.0-27.9,adult Colon cancer screening GERD (gastroesophageal reflux disease) Depression Anxiety Surgical History Surgical History History of laparoscopic cholecystectomy on 08/11/23 [facility] History of Tong-en-Y gastric bypass Family History Family History Mother Family history of obesity Depression Family history of cardiovascular disease Father Family history of alcoholism Family history of pancreatic cancer, Onset Age: 60 Grandparent Family history of cardiovascular disease Family history of arthritis Sibling No problems noted. Social History Social History Smoking status: Never smoker Second hand tobacco smoke exposure: No Alcohol intake: current Alcohol use details: 3 drinks a month Substance use: never Substance use type: does not use Do You Feel Safe in your Home?: Yes Lack of Transportation: No Lack of Food: Never True Current Housing: I Have Housing Concerned About Future Housing: No Difficulty Paying Gas/Electric Bills: No Difficulty Paying for Meds: No Currently Unemployed: No Education: Master's Degree or Higher Difficulty w/ Childcare or Family Care: No Living arrangements: alone Occupation/Education: occupation 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 Gender identity (if verbalized by the patient): Male Spiritual care concerns: No Meds Home Medications and Allergies Home Medications ?Medication ?Instructions ?Recorded ?Confirmed ?Type cholecalciferol (vitamin D3) 50 2,000 unit PO DAILY 09/23/19 12/30/24 History mcg (2,000 unit) capsule (Vitamin D3) ferrous sulfate 325 mg (65 mg 325 mg PO DAILY #90 tabs 04/28/23 12/30/24 Rx iron) tablet hydrocodone 5 mg-acetaminophen 325 1 tablet PO Q6H PRN pain #20 tabs 12/11/24 12/18/24 Rx mg tablet gabapentin 300 mg capsule 300 mg PO DAILY 12/18/24 12/30/24 History Allergies Allergy/AdvReac Type Severity Reaction Status Date / Time No Known Allergies Allergy Verified 12/30/24 10:48 Vital Signs Vital Signs - 24 hr 12/30/24 10:49 Temperature 97 F L Pulse Rate 97 Respiratory Rate 18 Blood Pressure 124/79 Pulse Oximetry 98 Oxygen Delivery Room Air Exam Const: General: comfortable and no acute distress HENMT: Face/Nose/Sinus: Normal nares present Eyes: General: appearance normal, both eyes and all related structures Neck: Neck: no JVD Resp: Auscultation: clear to auscultation bilaterally Cardio: Rate: regular rate Rhythm: regular rhythm GI: Inspection: non-distended GI Palp: Yes Soft to palpation Skin: General skin exam: normal color Neuro: General: gait normal Speech: normal speech Extrem: General: normal to inspection Psych: Mental Status: mental status grossly normal Assessment and Plan Assessment and plan (1) Hx of colonic polyps: Code(s): Z86.010 - Personal history of colon polyps Status: Acute Assessment and Plan: colonoscopy
[2024-12-30 12:58] VITALS: BP 83/48; PULSE 68; RESP 18; O2SAT 96
[2024-12-30 13:08] VITALS: BP 106/70; PULSE 64; RESP 18; O2SAT 100
[2024-12-30 13:18] VITALS: BP 127/60; PULSE 62; RESP 18; O2SAT 100
== END 2024-12-30 13:22 | disposition home or self-care (01) ==
PROVIDERS: PCP Internal Medicine; Referring Provider Internal Medicine Gastroenterology; Visit Provider Internal Medicine Gastroenterology
PROC: 0DJD8ZZ Inspection of Lower Intestinal Tract, Via Natural or Artificial Opening Endoscopic (ICD-10-PCS; CPT 45378; principal; 2024-12-30 12:00)
DX: Z12.11 Encounter for screening for malignant neoplasm of colon (principal); D12.3 Benign neoplasm of transverse colon; K64.8 Other hemorrhoids; K21.9 Gastro-esophageal reflux disease without esophagitis; F32.A Depression, unspecified; F41.9 Anxiety disorder, unspecified; Z79.891 Long term (current) use of opiate analgesic; Z98.890 Other specified postprocedural states; Z90.49 Acquired absence of other specified parts of digestive tract; Z98.84 Bariatric surgery status; Z80.0 Family history of malignant neoplasm of digestive organs; Z82.49 Family history of ischemic heart disease and other diseases of the circulatory system
CPT/HCPCS: 45380; 88305; J2704; J7120

== ENCOUNTER 2025-01-11 20:18 | Emergency (ER) | payer OTHER, SELFPAY ==
--- NOTE | ~2025-01-11 | CT_ITS ---
CT brain wo con Ordering provider: Armen Tijerina MD History: 64 years Male with . Head injury . Comparison: None. Technique: CT of the head without contrast. Radiation reduction technique utilized.The dose-length product was 681 mGy-cm. FINDINGS: BRAIN PARENCHYMA AND CSF SPACES: Mild leukoaraiosis and diffuse cortical atrophy. Mild atheromatous d isease. No midline shift, mass effect or hemorrhage. The brain parenchyma and CSF spaces are otherwi se normal. VISUALIZED PARANASAL SINUSES: Well aerated. MASTOIDS: Well aerated. BONES: The bones appear intact. SOFT TISSUES: Visualized nasopharynx is normal. Right frontal scalp hematoma. Superficial soft tissu es are normal. IMPRESSION: No acute intracranial findings. Reviewed, dictated and finalized at location A. NA MANAGER
--- NOTE | ~2025-01-11 | CT_ITS ---
CT facial & cervical spine wo Ordering provider: Armen Tijerina MD History: . Head injury . Comparison: None. Technique: CT of the cervical spine was performed without contrast. Sagittal and coronal reformatted images were also obtained and reviewed. Automated exposure control and iterative reconstruction phillip hnique were employed. The dose-length product was 340.88 mGy-cm. FINDINGS: VERTEBRAE: No subluxation or acute fracture. The occipital condyles are intact. Degenerative changes of the spine. DISC SPACES: Normal. 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 Narrowing of the left foramina at t he level of C3-C4. Narrowing of the right foramen at the level of C4-C5 and PARASPINOUS SOFT TISSUES: Normal. IMPRESSION: No acute osseous abnormality cervical spine. CT facial & cervical spine wo Ordering provider: Armen Tijerina MD History: . Head injury . Comparison: None. Technique: Thin slice axial CT of the facial bones was performed without contrast. Coronal and sagit aubrey reformatted images were also obtained. . Automated exposure control and iterative reconstruction technique were employed. The dose-length product was 340.88 mGy-cm. FINDINGS: PARANASAL SINUSES: Right ethmoid sinus disease. Left nasal septal deviation. BONES: No facial fracture including no nasal bone fracture. ORBITS AND SUPERFICIAL SOFT TISSUES: The optic globes and orbits are normal. The superficial soft tis sues are normal. VISUALIZED MASTOIDS: Well aerated. LIMITED VISUALIZED BRAIN PARENCHYMA: Normal. IMPRESSION: No facial fracture. Left nasal septal deviation. Right ethmoid sinus disease. Reviewed, dictated and finalized at location A. [employer] IMPRESSION: No acute osseous abnormality cervical spine. CT facial & cervical spine wo Ordering provider: Armen Tijerina MD History: . Head injury . Comparison: None. Technique: Thin slice axial CT of the facial bones was performed without contra st. Coronal and sagittal reformatted images were also obtained. . Automated e xposure control and iterative reconstruction technique were employed. The dose- length product was 340.88 mGy-cm. FINDINGS: PARANASAL SINUSES: Right ethmoid sinus disease. Left nasal septal deviation. BONES: No facial fracture including no nasal bone fracture. ORBITS AND SUPERFICIAL SOFT TISSUES: The optic globes and orbits are normal. Th e superficial soft tissues are normal. VISUALIZED MASTOIDS: Well aerated. LIMITED VISUALIZED BRAIN PARENCHYMA: Normal.
[2025-01-11 20:20] VITALS: BP 129/87; PULSE 123; RESP 24; TEMP 36.6; O2SAT 98
[2025-01-11 20:25] VITALS: PULSE 119; O2SAT 98
--- NOTE | 2025-01-11 20:26 | PC.NURSE ---
Patient states that he has no pain when talking to EDP at bedside
--- NOTE | 2025-01-11 20:35 | ED.GENADULT ---
HPI - General Adult General Chief complaint: Unspecified Stated complaint: FALL, FACIAL INJURY, POSSIBLY POST-ICTAL Time Seen by Provider: 01/11/25 20:21 Source: EMS Mode of arrival: EMS Limitations: altered mental status History of Present Illness HPI narrative: This is a 64-year-old male with no known significant past medical history, brought in by EMS from home after being found down with altered mental status. EMS reports the patient's mother found the patient lying on the floor surrounded by blood. On their initial evaluation the patient is A&O x1 but slowly improved and O x4. The patient admits to drinking a 5th of whiskey today. He cannot recall a fall or other head injury. He denies pain, shortness of breath, weakness, numbness or suicidal or homicidal ideations. He has no other complaints at this time. Related Data Home Medications ?Medication ?Instructions ?Recorded ?Confirmed ?Last Taken ?Type cholecalciferol (vitamin D3) 50 2,000 unit PO DAILY 09/23/19 12/30/24 12/29/24 History mcg (2,000 unit) capsule (Vitamin D3) gabapentin 300 mg capsule 300 mg PO DAILY 12/18/24 12/30/24 12/29/24 History Allergies Allergy/AdvReac Type Severity Reaction Status Date / Time No Known Allergies Allergy Verified 12/30/24 10:48 Review of Systems Review of Systems: All systems reviewed & are unremarkable except as noted in HPI and below PMFSH Past Medical History Medical History BMI 27.0-27.9,adult Colon cancer screening GERD (gastroesophageal reflux disease) Depression Anxiety Surgical History Surgical History History of laparoscopic cholecystectomy on 08/11/23 [facility] History of Tong-en-Y gastric bypass Family History Family History Mother Family history of obesity Depression Family history of cardiovascular disease Father Family history of alcoholism Family history of pancreatic cancer, Onset Age: 60 Grandparent Family history of cardiovascular disease Family history of arthritis Sibling No problems noted. Social History Social History Smoking status: Never smoker Second hand tobacco smoke exposure: No Alcohol intake: current Alcohol use details: 3 drinks a month Substance use: never Substance use type: does not use Do You Feel Safe in your Home?: Yes Lack of Transportation: No Lack of Food: Never True Current Housing: I Have Housing Concerned About Future Housing: No Difficulty Paying Gas/Electric Bills: No Difficulty Paying for Meds: No Currently Unemployed: No Education: Master's Degree or Higher Difficulty w/ Childcare or Family Care: No Living arrangements: alone Occupation/Education: occupation 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 The patient was noted to be incontinent of urine HEAD: Normocephalic, There are contusions and hematomas noted on the right anabaptist and above the left eyebrow. No facial tenderness to palpation, no step-off or crepitus EYES: PERRLA and EOMI. ENT: There is a 0.5 cm mucosal upper lip laceration; bleeding controlled. Nares clear, no rhinorrhea or epistaxis. Mucous membranes moist. Oropharynx without tonsillar hypertrophy exudate or other lesions. Bilateral TMs pearly perdomo nonbulging NECK: Supple. No midline spine tenderness to palpation, no step-off or crepitus CHEST: Clear to auscultation. No respiratory distress. No wheezes rales or rhonchi HEART: Regular rate and rhythm. No murmur heard. Normal peripheral pulses. ABDOMEN: Soft, nontender, nondistended, normal active bowel sounds. BACK: No midline spine tenderness to palpation, no step-off or crepitus EXTREMITIES: A 10 x 12 cm area of ecchymosis is noted over the right hip without tenderness, crepitus or step-off to palpation. Normal range of motion. No edema. SKIN: Warm, dry, no rash. NEURO: Alert and oriented x3. No focal deficit. Moving all 4 limbs spontaneously PSYCH: Normal mood and affect. Course Course Emergency Course: 22:41 - ETOH 355. CBC unremarkable. Chemistries demonstrate lactic acid elevation of 3.7 with anion gap of 16. I suspect this is related to alcohol use and dehydration. Calcium 8.2. CT of the head not concerning for intracranial hemorrhage or skull fracture. CT cervical spine negative for fracture or dislocation. CT face negative for fracture dislocation though does demonstrate septal deviation. On re-evaluation, the patient is oriented. He states he has a history of alcohol abuse. I and nursing staff attempted to contact the patient's family. The patient's mother is unable to drive or safety last picker the patient. Attempts were made to contact the patient's sister without success. Will monitor for clinical sobriety. If a sober person is able to last picker the patient will discharge. 03:41 - The patient complains of some chest pressure, headache and mild tremors. CIWA score 6. Will give a dose of Librium. 06:52 - The patient's sister is in route to last picker the patient. Repeat lactic acid improved to 2.6 with IV fluids. Will discharge. Will provide the patient with a Librium taper. I discussed the findings and recommendations with the patient. Discussed return and emergency precautions including signs/symptoms of ACS, respiratory distress and alcohol withdrawal. The patient voiced understanding and agreement with the plan. All questions answered to his satisfaction. Vital Signs Vital signs: Vital Signs Temperature 98 F 01/11/25 20:20 Pulse Rate 123 H 01/11/25 20:20 Respiratory Rate 24 H 01/11/25 20:20 Blood Pressure 129/87 01/11/25 20:20 Pulse Oximetry 98 01/11/25 20:20 Oxygen Delivery Room Air 01/11/25 20:20 Temperature 98.3 F 01/12/25 05:04 Pulse Rate 91 01/12/25 05:04 Respiratory Rate 16 01/12/25 05:04 Blood Pressure 128/90 01/12/25 05:04 Pulse Oximetry 96 01/12/25 05:04 Oxygen Delivery Room Air 01/11/25 20:41 Medical Decision Making [facility] Narrative Medical decision making narrative: Plan: Imaging, labs, IV fluids, reassess Differential Diagnosis Differential Diagnosis: Drug/alcohol intoxication, intracranial hemorrhage, laceration, seizure, syncope, metabolic abnormality, other Vital Signs Vital Signs: Vital Signs Temperature 98 F 01/11/25 20:20 Pulse Rate 123 H 01/11/25 20:20 Respiratory Rate 24 H 01/11/25 20:20 Blood Pressure 129/87 01/11/25 20:20 Pulse Oximetry 98 01/11/25 20:20 Oxygen Delivery Room Air 01/11/25 20:20 Temperature 98.3 F 01/12/25 05:04 Pulse Rate 91 01/12/25 05:04 Respiratory Rate 16 01/12/25 05:04 Blood Pressure 128/90 01/12/25 05:04 Pulse Oximetry 96 01/12/25 05:04 Oxygen Delivery Room Air 01/11/25 20:41 Lab Data 01/11/25 20:39 01/11/25 20:58 Labs: Lab Results 01/11/25 01/11/25 01/12/25 Range/Units 20:39 20:58 00:36 WBC 8.1 (4.5-10.0) K/mm3 RBC 4.37 L (4.6-6.20) M/mm3 Hgb 14.2 D (14.0-18.0) g/dL Hct 41.6 L (42.0-52.0) % MCV 95.2 (80-100) fl MCH 32.5 (26-34) pg MCHC 34.1 (32-36) g/dl RDW 13.3 (11.5-14.5) % Plt Count 251 D (150-375) k/mm3 MPV 9.6 (7.4-10.4) fl Immature Gran % (Auto) 0.2 (0-0.5) % Neut % (Auto) 57.5 (45.5-73.1) % Lymph % (Auto) 36.1 (18.3-44.2) % [place] % (Auto) 4.8 (2.6-8.5) % Eos % (Auto) 0.9 (0-4.4) % Baso % (Auto) 0.5 (0.2-1.2) % Lymph # (Auto) 2.93 (0.9-3.2) K/mm3 [place] # (Auto) 0.4 (0.1-0.6) K/mm3 Eos # (Auto) 0.1 (0-0.3) K/mm3 Baso # (Auto) 0.0 (0.0-0.1) K/mm3 Abs Immat Gran (auto) 0.02 (0.00-0.031) K/mm3 Absolute Neuts (auto) 4.7 (1.3-6.7) K/mm3 Absolute Nucleated RBC 0.000 (0.0-0.012) K/mm3 Nucleated RBC % 0.0 (0.0-0.2) % Sodium 144 (137-145) mmol/L Potassium 4.1 (3.4-5.0) mmol/L Chloride 106 (98-107) mmol/L Carbon Dioxide 22 (22-30) mmol/L Anion Gap 16 H (4-12) mmol/L BUN 11 (9-20) mg/dL Creatinine 0.98 (0.7-1.3) mg/dL Estim Creat Clear Calc Not Reportable Estimated GFR > 60 (59 - ) Glucose 98 (65-110) mg/dL Lactic Acid 3.7 H 2.6 H (0.7-2.0) mmol/L Calcium 8.2 L (8.4-10.2) mg/dL Magnesium 2.2 (1.6-2.3) mg/dL Total Bilirubin 0.2 (0.2-1.3) mg/dL AST 48 (17-59) U/L ALT 42 (6-50) U/L Alkaline Phosphatase 87 (38-126) U/L Total Creatine Kinase 58 (55-170) U/L Total Protein 7.0 (6.3-8.2) g/dL Albumin 4.4 (3.5-5.1) g/dL Ethyl Alcohol 355 H* (<10) mg/dL ECG Data EKG #1: Attestation: I personally reviewed and interpreted this ECG as follows: ECG completion date: 01/11/25 ECG completion time: 21:06 Interpretation: Sinus tachycardia, rate 101, normal axis, no ST segment elevations or T-wave inversions concerning for ischemia, normal intervals with QTC of 461. Discharge Plan Discharge Clinical Impression: ETOH abuse Laceration of lip Qualifiers: Encounter type: initial encounter Qualified Code(s): S01.511A - Laceration without foreign body of lip, initial encounter Fracture of tooth Qualifiers: Encounter type: initial encounter Fracture type: open Qualified Code(s): S02.5XXB - Fracture of tooth (traumatic), initial encounter for open fracture Patient Disposition: Home, Self-Care Condition: Stable Instructions: Antibiotic Form, Alcohol Withdrawal (ED) Additional Instructions: You were seen in the emergency department. A CT scan of the head, neck and face was not concerning for bleeding in the brain, skull fracture, facial fracture or neck fracture. I recommend avoiding future alcohol use. I have prescribed for you a Librium taper. I recommend following up with your primary care doctor. If you develop chest pain, shortness of breath, loss of consciousness, or if you have other emergent concerns for life, limb, or eyesight, return to the emergency department. Patient Language: Japanese Prescriptions: New chlordiazepoxide HCl 25 mg capsule 25 mg PO BID PRN (Reason: alcohol withdrawal) Qty: 15 0RF Rx Instructions: Day 1: Take 2 tablets by mouth every 6 hours, Day 2: Take 1 tablet by mouth every 6 hours, Day 3: Take 1 tablet by mouth every hour, Day 4: Take 1 tablet by mouth at night before bed. No Action ferrous sulfate 325 mg (65 mg iron) tablet 325 mg PO DAILY Qty: 90 1RF cholecalciferol (vitamin D3) [Vitamin D3] 50 mcg (2,000 unit) Capsule 2,000 unit PO DAILY gabapentin 300 mg capsule 300 mg PO DAILY Patient Comments: pt no longer taking hydrocodone-acetaminophen 5-325 mg tablet 1 tablet PO Q6H PRN (Reason: pain) Qty: 20 0RF Follow-up/Referrals: Luis Alfredo Kaur DO [Primary Care Provider] - 1 Week Time of Disposition: 06:57
[2025-01-11] MEDS: SODIUM CHLORIDE 0.9% IV 1,000 ML 999 ML IV CONT (20:38)
--- NOTE | 2025-01-11 20:39 | ECG_ITS ---
Test Date: 2025-01-11 21:06:08 Measurements Intervals [place] Rate: 101 P: 53 NC: 177 QRS: 67 QRSD: 93 T: 49 QT: 356 QTc: 461 Interpretive Statements SINUS TACHYCARDIA LOW QRS VOLTAGE OTHERWISE NORMALECG No previous ECG available for comparison Electronically Signed On 01-12-2025 07:57:51 CDT by Troy Jauregui M.D.
[2025-01-11 20:41] VITALS: O2SAT 100
[2025-01-11 20:45] LABS: Basophils Percent Auto 0.5 % (0.2-1.2); Eosinophils Absolute Auto 0.1 K/mm3 (0-0.3); Eosinophils Percent Auto 0.9 % (0-4.4); Hematocrit 41.6 % (42.0-52.0); Hemoglobin 14.2 g/dL (14.0-18.0); Immature Granulocyte Absolute 0.02 K/mm3 (0.00-0.031); Immature Granulocyte Percent A 0.2 % (0-0.5); Lymphocytes Absolute Auto 2.93 K/mm3 (0.9-3.2); Lymphocytes Percent Auto 36.1 % (18.3-44.2); Mean Corpuscular HGB Conc 34.1 g/dl (32-36); Mean Corpuscular Hemoglobin 32.5 pg (26-34); Mean Corpuscular Volume 95.2 fl (80-100); Mean Platelet Volume 9.6 fl (7.4-10.4); Monocytes Absolute Auto 0.4 K/mm3 (0.1-0.6); Monocytes Percent Auto 4.8 % (2.6-8.5); Neutrophils Absolute Auto 4.7 K/mm3 (1.3-6.7); Neutrophils Percent Auto 57.5 % (45.5-73.1); Platelet Count Result 251 k/mm3 (150-375); Red Blood Count 4.37 M/mm3 (4.6-6.20); Red Cell Distribution Width 13.3 % (11.5-14.5); White Blood Count 8.1 K/mm3 (4.5-10.0)
[2025-01-11 20:55] LABS: Lactic Acid Reflex 3.7 mmol/L (0.7-2.0)
--- OUTSIDE RECORDS SUMMARY | 2025-01-11 21:02 | XMS_ITS | Patient Health Summary ---
Author Organization [facility] Address [address] [place] [address] Care Team Providers Care School Library Media Specialist Name Role Phone Unavailable Primary Care Provider Unavailabl e Note from [facility],non-owned Affiliates and Associated Physician Practices is amultiple site organization consisting of ambulatory clinics and hospital sitesin [place], [place], [place] and [place]. This disclosure is being madepursuant to the Care Everywhere program and may not contain all information available regarding this patient. Last updated 18.[facility] Allergies No known active allergies Social History [...] S / Unknown 06/08/2019 Marco Antonio Nichols SCADA TECHNICIAN-SUPERVISOR SHIPPING ROOM LAB - POINT OF CA RE ORDERABLES
--- OUTSIDE RECORDS SUMMARY | 2025-01-11 21:02 | XMS_ITS | Clinical Summary ---
Author Organization [facility] [employer] Address [address] [place] [address] Care Team Providers Care Fire Extinguisher Technician Name Role Phone Unavailable Primary Care Provider Unavailabl e Source Comments [facility] [employer],non-owned Affiliates and Associated Physician Practices is amultiple site organization consisting of ambulatory clinics and hospital sitesin [place], [place], [place] and [place]. This disclosure is being madepursuant to the Care Everywhere program and may not contain all information available regarding this patient. Last updated 18.[facility] [employer] Allergies No known active allergies Social History [...]
--- OUTSIDE RECORDS SUMMARY | 2025-01-11 21:02 | XMS_ITS | Referral Summary ---
Author Organization [facility] Address [address] [address] Care Team Providers Care Implementation Services Analyst Name Role Phone Unavailable Primary Care Provider Unavailabl e Source Comments [facility],non-owned Affiliates and Associated Physician Practices is amultiple site organization consisting of ambulatory clinics and hospital sitesin [place], [place], [place] and [place]. This disclosure is being madepursuant to the Care Everywhere program and may not contain all information available regarding this patient. Last updated 18.[facility] [employer] Allergies No known active allergies Social History Tobacco Use Types Packs/Day Years Used Date Smoking Tobacco: Never Assessed Sex and Gender Information Value Date Recorded Sex Assigned at Not on file Gender Identity Not on file Sexual Orientation Not on file Plan of Treatment Not on file Administered Medications
[2025-01-11 21:08] LABS: Ethanol 355 mg/dL (<10)
[2025-01-11 21:15] LABS: Alanine Aminotransferase 42 U/L (6-50); Albumin Level 4.4 g/dL (3.5-5.1); Alkaline Phosphatase 87 U/L (38-126); Anion Gap 16 mmol/L (4-12); Aspartate Amino Transferase 48 U/L (17-59); Bilirubin,Total 0.2 mg/dL (0.2-1.3); Blood Urea Nitrogen 11 mg/dL (9-20); Calcium 8.2 mg/dL (8.4-10.2); Carbon Dioxide 22 mmol/L (22-30); Chloride 106 mmol/L (98-107); Creatine Kinase 58 U/L (55-170); Estimated Glomerular Filt Rate > 60; Glucose 98 mg/dL (65-110); Magnesium 2.2 mg/dL (1.6-2.3); Potassium 4.1 mmol/L (3.4-5.0); Sodium 144 mmol/L (137-145)
[2025-01-11 21:31] VITALS: BP 111/77; PULSE 98; RESP 19; O2SAT 98
[2025-01-11 22:58] VITALS: BP 108/72; PULSE 97; RESP 13; TEMP 36.8; O2SAT 96
--- NOTE | 2025-01-11 23:08 | PC.NURSE ---
Called patient's mother to see if she could come picker/puller patient. Per patient's mother she cannot drive, but provided a sisters number for patient.
--- NOTE | 2025-01-11 23:10 | PC.NURSE ---
attempted to call patient's sister; no answer
[2025-01-11 23:43] LABS: Reflex Lactic Acid Yes or No Add Lactic
[2025-01-12 00:51] LABS: Lactic Acid 2.6 mmol/L (0.7-2.0)
--- NOTE | 2025-01-12 00:54 | PC.NURSE ---
Patient started to have trembling in his arms. Patient states that he sometimes drink to avoid withdraw and he has experienced withdraw a few times. Patient's CIWA score 4. Notified EDP Dr. Tijerina
[2025-01-12 01:21] VITALS: BP 112/75; PULSE 107; RESP 19; O2SAT 98
[2025-01-12 03:17] VITALS: BP 101/77; PULSE 99; RESP 17; TEMP 37; O2SAT 96
--- NOTE | 2025-01-12 03:35 | PC.NURSE ---
Patient states that his head is starting to hurt. Notified EDP Dr. Tijerina who VRBO 1,000mg Tylenol PO.
[2025-01-12] MEDS: ACETAMINOPHEN 500 MG TABLET 1000 MG PO (03:38)
--- NOTE | 2025-01-12 03:39 | ECG_ITS ---
Test Date: 2025-01-12 03:42:07 Measurements Intervals Royal Rate: 96 P: 52 WV: 175 QRS: 68 QRSD: 91 T: 45 QT: 367 QTc: 465 Interpretive Statements SINUS RHYTHM LOW QRS VOLTAGE OTHERWISE NORMAL ELECTROCARDIOGRAM Compared to ECG 01/11/2025 21:06:08 NO CHANGE Electronically Signed On 01-12-2025 08:01:16 CDT by Troy Jauregui M.D.
--- NOTE | 2025-01-12 03:44 | PC.NURSE ---
Patient states his chest feels heavy. EKG performed and shown to EDP Dr. Tijerina.
[2025-01-12] MEDS: chlordiazePOXIDE (*CRX) 25 MG CAPSULE 50 MG PO (03:45)
[2025-01-12 05:04] VITALS: BP 128/90; PULSE 91; RESP 16; TEMP 36.8; O2SAT 96
== END 2025-01-12 07:02 | disposition home or self-care (01) ==
PROVIDERS: Emergency Provider Preventive Medicine Aerospace Medicine; PCP Internal Medicine
DX: S01.511A Laceration without foreign body of lip, initial encounter (principal); S02.5XXB Fracture of tooth (traumatic), initial encounter for open fracture; F10.10 Alcohol abuse, uncomplicated; Y90.8 Blood alcohol level of 240 mg/100 ml or more; K21.9 Gastro-esophageal reflux disease without esophagitis; F32.A Depression, unspecified; F41.9 Anxiety disorder, unspecified; Z98.84 Bariatric surgery status; Z90.49 Acquired absence of other specified parts of digestive tract; R00.0 Tachycardia, unspecified; X58.XXXA Exposure to other specified factors, initial encounter
CPT/HCPCS: 36415; 70450; 70486; 72125; 80053; 82077; 82550; 83605; 83735; 85025; 93005; 96360; 99284; A9270; J7030